=== PATIENT | female | born 1995 | race Caucasian/White ===

== ENCOUNTER 2016-03-15 08:04 | Emergency (ER) | payer BC ==
[~2016-03-15] VITALS: Ht 167.6 cm; Wt 58.2 kg
[~2016-03-15 08:04] MED LIST: BCPILLS PO; CETI10TA84 PO; FLUO10CA48 PO; FLUO40CA8 PO; HYDR0.5T PO; MONT1TAB3 PO; MULT-506 PO
[2016-03-15 08:08] VITALS: Ht 167.6 cm; Wt 58.2 kg
[2016-03-15] MEDS ORDERED: SODIUM CHLORIDE 0.9% 1000ML 1,000 ML IV STA ×2 (08:28)
[2016-03-15] MEDS ORDERED: HYDR200T5 PO (08:43)
[2016-03-15 08:59] LABS: BASO % 0.3 %; BASO ABS # 0.02 K/uL (0-0.2); COMPLETE YES; EOS % 1.2 %; HEMATOCRIT 34.3 % (37-47); IG% 0.5 %; LYMPH % 29.3 %; LYMPH ABS # 2.16 K/uL (1.2-3.4); MEAN CELL VOLUME 87.9 fL (80-100); MEAN CORPUSCULAR HEMOGLOBIN 30.3 pg (25-34); MEAN CORPUSCULAR HGB CONC 34.4 g/dl (32-36); MEAN PLATELET VOLUME 8.3 fL (7.4-10.4); MONO % 5.3 %; NEUT % 63.4 %; PLATELET COUNT 285 K/uL (130-400); WHITE BLOOD COUNT 7.38 K/uL (4.8-10.8)
[2016-03-15 09:00] LABS: PREG INTERNAL NEGATIVE QC NEG CLEAR BACKGROUND; PREG INTERNAL POSITIVE QC POS CONTROL LINE
--- NOTE | 2016-03-15 09:15 | DIAGNOSTIC IMAGING REPORT ---
TWO VIEW CHEST CLINICAL HISTORY: Fever. Chest soreness. FINDINGS: PA and lateral chest radiographs are compared to study dated 11/14/2013. The cardiomediastinal silhouette is unremarkable. The lungs and pleural spaces are clear. There is no pneumothorax. The bony thorax appears intact. IMPRESSION: No active disease in the chest. Electronically signed by: Mikey Boston M.D. 03/15/2016 9:13 AM Dictated Date/Time: 03/15/2016 9:12 AM
[2016-03-15 09:19] LABS: BUN/CREATININE RATIO 10.5 (10-20); CALCIUM 8.5 mg/dl (8.5-10.1); CREATININE 0.93 mg/dl (0.60-1.20); POTASSIUM 3.2 mmol/L (3.5-5.1)
[2016-03-15 09:22] LABS: ALB/GLOB RATIO 0.9 (0.9-2)
[2016-03-15] MEDS ORDERED: ACETAMINOPHEN 500 MG TAB PO STA (10:13)
--- NOTE | 2016-03-15 10:54 | EMERGENCY ROOM VISIT NOTE ---
History First contact with patient: 08:11 Chief Complaint: ILLNESS Stated Complaint: UNRESOLVED INFECTION, SORENESS, FEVERISH History of Present Illness Patient is a 21-year-old white female with past medical history including mixed connective tissue disorder, depression and anxiety who presents emergency department for evaluation of sore throat and tender lymphadenopathy in her neck over the last week. She states her symptoms started over a week ago. She developed a "lump in the back of the right side of her throat." She states it was sore, and she had a low-grade fever around 100F orally. She went to [facility], was tested negative for strep and they did not suspect influenza. They placed her on a course of prednisone and amoxicillin however she did not take the amoxicillin because she states that it does not typically help her when she has infections. She states the prednisone did help and the lump went away, but a few days after she was seen there, she developed swollen lymph nodes in the right side of her neck. They have progressively spread, into the right clavicular region and into the left side of her neck. She notes soreness associated with the lymph nodes in her neck. She notes soreness in her upper chest and back. She subjectively has felt feverish and been flushed, and her throat is again slightly sore. She has taken ibuprofen for her symptoms. She has not had any further fevers. She notes a slight cough but feels like it is "allergy related." She denies any skin rashes. She notes some slight nausea without vomiting. No urinary symptoms. She is not aware of any sick contacts. She has never had mono. She denies any sick contacts. Review of Systems Review of systems as per HPI. All other systems reviewed were negative. 10 systems reviewed. Past Medical/Surgical History Medical Problems: (1) Acute appendicitis (2) Anxiety (3) Bronchitis (4) Depression (5) Environmental allergies (6) Mixed connective tissue disease (7) No pertinent past medical history (8) Raynaud's disease (9) Sinusitis (10) Sinusitis (11) Sprain of knee Surgical Problems: (1) bilateral ankle surgery (2) History of appendectomy Electronic medical records are reviewed and summarized as above/below. See Problem List. Family History No pertinent family history Social History Smoking Status: Never Smoker Alcohol Use: occasionally Marital Status: single Housing Status: lives with roommate Occupation Status: [employer] student Current/Historical Medications Scheduled Control Pills ( Control Pills), 1 TAB PO DAILY Cetirizine (Zyrtec), 10 MG PO DAILY Fluoxetine (Prozac), 10 MG PO HS Fluoxetine (Prozac), 40 MG PO HS Hydroxychloroquine Sulfate (Plaquenil), 200 MG PO HS Montelukast Sodium (Singulair), 10 MG PO HS Multivitamin (Multivitamin), 1 TAB PO DAILY Allergies Coded Allergies: NUTS (Verified Allergy, Severe, ANAPHYLAXIS, 02/02/16) Tree nuts Dairy (Unverified Allergy, Intermediate, GI SYMPTOMS, 03/15/16) Ondansetron (Unverified Allergy, Mild, TURN RED/FLUSH AND WARM, 03/15/16) Sulfamethoxazole w/Trimethoprim (Verified Allergy, Unknown, HIVES, 02/01/16 ) Physical Exam Vital Signs Date Time Temp Pulse Resp B/P Pulse Ox O2 Delivery O2 Flow Rate FiO2 03/15/16 11:30 37.6 88 16 106/54 99 Room Air 03/15/16 11:09 38.5 03/15/16 09:39 38.3 97 16 125/76 99 03/15/16 08:08 36.6 88 18 120/70 94 Room Air Physical Exam CONSTITUTIONAL: Patient is a well-appearing 21-year-old white female who is awake and alert and in no acute distress. Temperature in triage is 36.6C orally. EYES: Pupils equal, round, reactive to light and accommodation. EOMs intact without nystagmus. Sclera are anicteric. ENT: Tympanic membranes intact, with normal landmarks. External canals are clear. Oral and nasopharynx are clear. Tonsils are nonedematous, without exudate. Uvula is midline. No ulcerations or petechiae are noted. Mucous membranes are moist, no lesions, tongue and gums appear normal. NECK: Supple, bilateral cervical chain lymphadenopathy noted bilaterally. No significant soft tissue swelling is noted. No erythema, increased warmth or induration. No cellulitic changes. No thyromegaly. No meningeal signs. Full active range of motion without discomfort. CARDIOVASCULAR: Regular rate and rhythm, with normal S1 and S2, no murmur or gallop or rub is heard. No carotid bruits auscultated. No JVD. Peripheral pulses easy to palpable. RESPIRATORY: Breath sounds equal and clear to auscultation without wheezes, rales, or rhonchi heard. Full and equal chest expansion without accessory muscle use or retractions. GI: Bowel sounds are present. Abdomen is soft, nontender, nondistended. No organomegaly. No pulsatile masses. No guarding or rebound. MUSCULOSKELETAL: Full range of motion of extremities x 4 with good strength. No cyanosis, edema, joint tenderness or swelling. No deformity. INTEGUMENTARY: No lesions or rash, normal skin turgor. NEUROLOGICAL: Alert, oriented, and cooperative. Cranial nerves, sensation and strength grossly intact. Pupils round, equal, and react to light, EOMs are full. LYMPH: No lymphadenopathy. Medical Decision & Procedures ER Provider Diagnostic Interpretation: TWO VIEW CHEST CLINICAL HISTORY: Fever. Chest soreness. FINDINGS: PA and lateral chest radiographs are compared to study dated 11/14/2013. The cardiomediastinal silhouette is unremarkable. The lungs and pleural spaces are clear. There is no pneumothorax. The bony thorax appears intact. IMPRESSION: No active disease in the chest. Laboratory Results 03/15/16 08:40 Red Blood Count 3.90, Mean Corpuscular Volume 87.9, Mean Corpuscular Hemoglobin 30.3, Mean Corpuscular Hemoglobin Concent 34.4, Mean Platelet Volume 8.3, Neutrophils (%) (Auto) 63.4, Lymphocytes (%) (Auto) 29.3, Monocytes (%) (Auto) 5.3, Eosinophils (%) (Auto) 1.2, Basophils (%) (Auto) 0.3, Neutrophils # (Auto) 4.68, Lymphocytes # (Auto) 2.16, Monocytes # (Auto) 0.39, Eosinophils # (Auto) 0.09, Basophils # (Auto) 0.02 03/15/16 08:40 Test 03/15/16 00:00 03/15/16 08:40 Urine Test NEG (NEG) White Blood Count 7.38 K/uL (4.8-10.8) Red Blood Count 3.90 M/uL (4.2-5.4) Hemoglobin 11.8 g/dL (12.0-16.0) Hematocrit 34.3 % (37-47) Mean Corpuscular Volume 87.9 fL (80-100) Mean Corpuscular Hemoglobin 30.3 pg (25-34) Mean Corpuscular Hemoglobin Concent 34.4 g/dl (32-36) Platelet Count 285 K/uL (130-400) Mean Platelet Volume 8.3 fL (7.4-10.4) Neutrophils (%) (Auto) 63.4 % Lymphocytes (%) (Auto) 29.3 % Monocytes (%) (Auto) 5.3 % Eosinophils (%) (Auto) 1.2 % Basophils (%) (Auto) 0.3 % Neutrophils # (Auto) 4.68 K/uL (1.4-6.5) Lymphocytes # (Auto) 2.16 K/uL (1.2-3.4) Monocytes # (Auto) 0.39 K/uL (0.11-0.59) Eosinophils # (Auto) 0.09 K/uL (0-0.5) Basophils # (Auto) 0.02 K/uL (0-0.2) RDW Standard Deviation 40.0 fL (36.4-46.3) RDW Coefficient of Variation 12.5 % (11.5-14.5) Immature Granulocyte % (Auto) 0.5 % Immature Granulocyte # (Auto) 0.04 K/uL (0.00-0.02) Anion Gap 10.0 mmol/L (3-11) Est Creatinine Clear Calc Drug Dose 87.9 ml/min Estimated GFR () 101.8 Estimated GFR (Non- 87.9 BUN/Creatinine Ratio 10.5 (10-20) Calcium Level 8.5 mg/dl (8.5-10.1) Total Bilirubin 0.2 mg/dl (0.2-1) Aspartate Amino Transf (AST/SGOT) 14 U/L (15-37) Alanine Aminotransferase (ALT/SGPT) 16 U/L (12-78) Alkaline Phosphatase 37 U/L (45-117) Total Protein 7.3 gm/dl (6.4-8.2) Albumin 3.5 gm/dl (3.4-5.0) Globulin 3.8 gm/dl (2.5-4.0) Albumin/Globulin Ratio 0.9 (0.9-2) Thyroid Stimulating Hormone (TSH) 3.120 uIu/ml (0.300-4.500) Monoscreen NEG (NEG) Medications Administered Medications (Trade) Dose Ordered Sig/Elena Route Start Time Stop Time Status Last Admin Dose Admin Sodium Chloride 1,000 ml @ 999 mls/hr Q1H1M STAT IV 03/15/16 08:28 03/15/16 09:28 DC 03/15/16 08:28 999 MLS/HR Sodium Chloride (Nss 1000ml) 1,000 ml @ 250 mls/hr Q4H STAT IV 03/15/16 08:28 03/15/16 12:13 DC 03/15/16 09:43 250 MLS/HR Acetaminophen (Tylenol Tab) 1,000 mg NOW STAT PO 03/15/16 10:13 03/15/16 10:16 DC 03/15/16 10:20 1,000 MG ED Course The patient was seen and evaluated as above. She presents the emergency department for a one-week history of sore throat, cervical lymphadenopathy and fever. IV access was obtained . She was hydrated with normal saline solution. Laboratory studies were collected including CBC with differential, CMP and Monospot. Urine dip and test were also performed.. Chest x-ray was obtained and was unremarkable. Laboratory studies revealed a normal white count at 7300, H&H 11 and 34, electrolytes are within normal limits. Renal function is not elevated. Liver functions are normal. TSH was later added as a request of the patient and at the time of dictation was within normal limits and indicative of a euthyroid state. Urine dip was clear and urine test was negative. Monospot was negative. Patient was reassessed. Temperature was rechecked and was 38.3C orally. She was given 1 g of Tylenol orally for the fever. She was reassessed after her IV fluids were completed, and temperature had decreased to 37.6C orally. All laboratory and diagnostic imaging studies were reviewed with attending physician. I discussed with the patient that I suspect her illness is viral in nature. At this time she does not have any evidence for bacterial infection which would require antibiotics. Her throat is benign. She does not have any exudate or tonsillitis. She does have some lymphadenopathy which I suspect is related to the virus. Possibility of mononucleosis was again discussed, despite the negative Monospot. She certainly does not have any findings consistent with meningitis or encephalitis on exam. I do not suspect cellulitis , retropharyngeal or peritonsillar abscess, deep space infection of the neck. Chest is nontender and demonstrate any evidence for pneumonia. Supportive care measures were discussed. The patient was encouraged to drink plenty of fluids and control her fever with Tylenol and ibuprofen. Certainly if her symptoms worsen at any point she should return to the emergency department for further care and evaluation. She expressed understanding of this and was agreeable. She was discharged home in good condition. She still did have a low-grade fever at the time of discharge. I did seek with the patient's mother by telephone with her permission while the patient was still in the emergency department to relate the outcome of her ED visit. Medical Decision See ED Course. Impression Primary Impression: Febrile illness Departure Information Referrals No Doctor, Assigned (PCP) Patient Instructions My [facility] Additional Instructions Acetaminophen(Tylenol) may be used for fever or pain. Use 1000mg every six hours as needed. Avoid using more than 3000mg in a 24 hour period. (AND/OR) Ibuprofen(Motrin, Advil) may be used for fever or pain. Use 600mg every six hours as needed. Take with food. Avoid using more than 2400mg in a 24 hour period. Do not use 2400mg per day for more than three consecutive days without physician direction. Prolonged inappropriate use can lead to stomach upset or ulcers. Rest and drink plenty of fluids. Controlling your fever with Tylenol and Ibuprofen as above will make you feel better. Rest and avoid any strenuous activity. Continue current medications. Return to the ER for severe headache, neck stiffness, chest pain, abdominal pain , persistent difficulty breathing, fevers, vomiting, worsening of your condition , or as needed. Follow up with [facility] this week for a recheck of your current condition.
[2016-03-15 11:30] VITALS: BP 106/54; PULSE 88; TEMP 37.6; O2SAT 99
== END 2016-03-15 11:52 | disposition home or self-care (01) ==
LOC: C.EDB 08:06 → C.EDA 11:52
DX: R50.9 Fever, unspecified (principal); F32.9 Major depressive disorder, single episode, unspecified; F41.9 Anxiety disorder, unspecified; I73.00 Raynaud's syndrome without gangrene

== ENCOUNTER 2016-09-18 22:45 | Emergency (ER) | payer BC ==
[~2016-09-18] VITALS: Ht 170.2 cm; Wt 61.5 kg
[~2016-09-18 22:45] MED LIST changes: -HYDR0.5T PO; +HYDR200T5 PO
[2016-09-18 22:49] VITALS: TEMP 37.2; Ht 170.2 cm; Wt 61.5 kg
[2016-09-19 00:30] LABS: BASO % 0.3 %; BASO ABS # 0.01 K/uL (0-0.2); COMPLETE YES; EOS % 2.6 %; HEMATOCRIT 33.2 % (37-47); IG% 0.3 %; LYMPH % 36.8 %; LYMPH ABS # 1.42 K/uL (1.2-3.4); MEAN CELL VOLUME 86.9 fL (80-100); MEAN CORPUSCULAR HEMOGLOBIN 29.3 pg (25-34); MEAN CORPUSCULAR HGB CONC 33.7 g/dl (32-36); MONO % 9.8 %; NEUT % 50.2 %; PLATELET COUNT 228 K/uL (130-400); RED BLOOD COUNT 3.82 M/uL (4.2-5.4); WHITE BLOOD COUNT 3.86 K/uL (4.8-10.8)
[2016-09-19] MEDS ORDERED: BUPR-83 PO (00:42)
--- NOTE | 2016-09-19 01:03 | EMERGENCY ROOM VISIT NOTE ---
History Report prepared by Kyler: Ashok Fuller Under the Supervision of: Ava BuchananO. First contact with patient: 23:54 Chief Complaint: NECK PAIN Stated Complaint: REPEATED NECK/JAW SWELLING - FATIGUE - RASH History of Present Illness The patient is a 21 year old female who presents to the Emergency Room with complaints of periodic right neck and jaw pain since 2199 tonight. The patient states that she had swelling tonight that felt tender and felt like a pressure, and she states that the swelling comes and goes in just a few hours. She states that this has happened since August 29. Additionally, the patient states that she has felt fatigued, and she has had night sweats. The patient states that she went to [facility] a week ago, and they did an ultrasound and blood work, and they said that she had some inflamed lymph nodes. The patient states that she has chronic rashes, so she is unsure if she is having new rashes. The patient denies any recent tick bites. The patient additionally states that she has a history of a mixed connective tissue disease. Source of History: patient Onset: 2199 tonight Position: jaw, neck Quality: pressure, other (swelling) Timing: other (periodic) Note: Associated symptoms: Fatigue and night sweats Review of Systems See HPI for pertinent positives & negatives. A total of 10 systems reviewed and were otherwise negative. Past Medical & Surgical Medical Problems: (1) Acute appendicitis (2) Anxiety (3) Bronchitis (4) Depression (5) Environmental allergies (6) Mixed connective tissue disease (7) No pertinent past medical history (8) Raynaud's disease (9) Sinusitis (10) Sinusitis (11) Sprain of knee Surgical Problems: (1) bilateral ankle surgery (2) History of appendectomy Family History No pertinent family history Social History Smoking Status: Never Smoker Alcohol Use: occasionally Marital Status: single Housing Status: lives with roommate Occupation Status: [employer] student Current/Historical Medications Scheduled Control Pills ( Control Pills), 1 TAB PO DAILY Bupropion (Wellbutrin), 1 TAB PO BID Cetirizine (Zyrtec), 10 MG PO DAILY Hydroxychloroquine Sulfate (Plaquenil), 200 MG PO HS Montelukast Sodium (Singulair), 10 MG PO HS Multivitamin (Multivitamin), 1 TAB PO DAILY Allergies Coded Allergies: NUTS (Verified Allergy, Severe, ANAPHYLAXIS, 09/19/16) Tree nuts Dairy (Unverified Allergy, Intermediate, GI SYMPTOMS, 09/19/16) Ondansetron (Unverified Allergy, Mild, TURN RED/FLUSH AND WARM, 09/19/16) Sulfamethoxazole w/Trimethoprim (Verified Allergy, Unknown, HIVES, 09/19/16 ) Physical Exam Vital Signs Date Time Temp Pulse Resp B/P (MAP) Pulse Ox O2 Delivery O2 Flow Rate FiO2 09/19/16 01:09 75 16 121/66 100 09/19/16 00:28 78 16 120/81 100 Room Air 09/18/16 22:49 37.2 81 18 132/79 99 Room Air Physical Exam HEENT: Head - normocephalic and atraumatic Pupils are equal, round, and reactive to light. Extraocular eye muscles are intact, and sclera are anicteric. Nose - moist nasal mucosa without discharge. Mouth - moist buccal mucosa. Oropharynx is nonerythematous and there is no tonsillar exudate or edema noted. Stone within the right parotid duct. Neck: Supple; no JVD, nuchal rigidity, cervical lymphadenopathy. Heart: Regular rate and rhythm. There is a normal S1 and S2 with no murmurs, clicks, or gallops appreciated. Lungs: Clear to auscultation bilaterally with no wheezes, rales, or rhonchi. Abdomen: Soft, completely nontender, nondistended, with good bowel sounds. There are no palpable pulsatile masses or hepatosplenomegaly. There is no guarding, rigidity, or rebound noted. Extremities: Blue fingers from Raynaud's disease. No evidence of clubbing, or edema. There are easily palpable peripheral pulses. Skin: warm and dry with good turgor and no rashes. Medical Decision & Procedures Laboratory Results 09/19/16 00:25 Red Blood Count 3.82, Mean Corpuscular Volume 86.9, Mean Corpuscular Hemoglobin 29.3, Mean Corpuscular Hemoglobin Concent 33.7, Mean Platelet Volume 8.0, Neutrophils (%) (Auto) 50.2, Lymphocytes (%) (Auto) 36.8, Monocytes (%) (Auto) 9.8, Eosinophils (%) (Auto) 2.6, Basophils (%) (Auto) 0.3, Neutrophils # (Auto) 1.94, Lymphocytes # (Auto) 1.42, Monocytes # (Auto) 0.38, Eosinophils # (Auto) 0.10, Basophils # (Auto) 0.01 Test 09/19/16 00:25 White Blood Count 3.86 K/uL (4.8-10.8) Red Blood Count 3.82 M/uL (4.2-5.4) Hemoglobin 11.2 g/dL (12.0-16.0) Hematocrit 33.2 % (37-47) Mean Corpuscular Volume 86.9 fL (80-100) Mean Corpuscular Hemoglobin 29.3 pg (25-34) Mean Corpuscular Hemoglobin Concent 33.7 g/dl (32-36) Platelet Count 228 K/uL (130-400) Mean Platelet Volume 8.0 fL (7.4-10.4) Neutrophils (%) (Auto) 50.2 % Lymphocytes (%) (Auto) 36.8 % Monocytes (%) (Auto) 9.8 % Eosinophils (%) (Auto) 2.6 % Basophils (%) (Auto) 0.3 % Neutrophils # (Auto) 1.94 K/uL (1.4-6.5) Lymphocytes # (Auto) 1.42 K/uL (1.2-3.4) Monocytes # (Auto) 0.38 K/uL (0.11-0.59) Eosinophils # (Auto) 0.10 K/uL (0-0.5) Basophils # (Auto) 0.01 K/uL (0-0.2) RDW Standard Deviation 40.2 fL (36.4-46.3) RDW Coefficient of Variation 12.5 % (11.5-14.5) Immature Granulocyte % (Auto) 0.3 % Immature Granulocyte # (Auto) 0.01 K/uL (0.00-0.02) Laboratory results per my review. ED Course 2354: Past medical records reviewed. The patient was evaluated in room B5. A complete history and physical exam was performed. Laboratory studies were drawn as above. I attempted to milk the stone from the right parotid duct. I was not successful. 0123: Upon reevaluation, the patient is comfortable. I discussed findings and results with her. She verbalized agreement of the treatment plan. She was discharged home. Medical Decision The patient is a 21 year old female who presents to the ED with neck pain. Differential diagnosis includes mumps, parotitis, and sialolithiasis. Lab results show: White count of 3.8, hemoglobin of 11.2 which is her baseline, and no left shift. The patient has intermittent swelling to the right side of her face and jaw line in the area of the parotid gland. On Physical exam, she has an obvious stone in the right parotid duct. I believe that she is intermittently obstructing that duct. By history, it usually enlarges just before eating or while she is eating. The patient was encouraged to take plenty of clear liquids , use lemon drops, and apply heat to that side of her face. She was given instructions to follow-up with ENT if her symptoms are not resolved. Medication Reconcilliation Current Medication List: was personally reviewed by me Blood Pressure Screening Patient's blood pressure: Normal blood pressure Impression Primary Impression: Parotid sialolithiasis Scribe Attestation The scribe's documentation has been prepared under my direction and personally reviewed by me in its entirety. I confirm that the note above accurately reflects all work, treatment, procedures, and medical decision making performed by me. Departure Information Dispostion Home / Self-Care Referrals No Doctor, Assigned (PCP) Forms HOME CARE DOCUMENTATION FORM, IMPORTANT VISIT INFORMATION, WORK / SCHOOL INSTRUCTIONS Patient Instructions My [facility]
[2016-09-19 01:09] VITALS: BP 121/66; PULSE 75; O2SAT 100
== END 2016-09-19 01:35 | disposition home or self-care (01) ==
LOC: C.EDB 22:46
DX: K11.5 Sialolithiasis (principal); F32.9 Major depressive disorder, single episode, unspecified; F41.9 Anxiety disorder, unspecified; M35.9 Systemic involvement of connective tissue, unspecified; I73.00 Raynaud's syndrome without gangrene; Z91.09 Other allergy status, other than to drugs and biological substances; Z79.3 Long term (current) use of hormonal contraceptives